=== PATIENT | female | born 1970 | race Caucasian/White ===

== ENCOUNTER 2016-11-01 23:24 | Observation (INO) | payer BC, OTHER ==
[2016-11-01] MEDS ORDERED: Sodium Chloride 0.9% 10 ML Syringe FLUSH PRN (23:36)
[2016-11-01] MEDS ORDERED: Aspirin 81 MG Tab.Chew PO ONE ×2 (23:36→23:42)
[2016-11-01] MEDS ORDERED: Sodium Chloride 0.9% 2.5 ML Syringe FLUSH PRN (23:36)
[2016-11-01] MEDS ORDERED: Ondansetron 4 MG/2 ML SDV IVPUSH ONE (23:37)
--- NOTE | 2016-11-01 23:41 | EDM.PDOC ---
ED HPI GENERAL MEDICAL PROBLEM - General Chief Complaint: Chest Pain Stated Complaint: CHEST PAIN Time Seen by Provider: 11/01/16 23:31 - History of Present Illness INITIAL COMMENTS - FREE TEXT/NARRATIVE: HISTORY AND PHYSICAL: History of present illness: The patient is a 46-year-old female with a history of hypertension and acid reflux and presents with a one-week history of left upper chest discomfort this been on and off but worsened tonight approximately 9:30 PM, 2 hours ago. The patient denies any recent trauma or upper respiratory symptoms and said that the pain has been coming and going and she thought it was more that her breast was hurting her because she is expecting her period. Tonight the discomfort seemed to be much stronger and was associated with nausea but no diaphoresis or shortness of breath. She has no abdominal pain and the pain does not radiate and she rates as a 5/10 in the ER and is pressure-like. She states that several days ago there was some left upper extremity numbness and tingling as well as discomfort which is currently not experiencing that; she said that she has some carpal tunnel issues and she thought those symptoms were related to that history.. Patient denies any leg pain or calf tenderness. Patient denies any social history and states that her mother had her first heart attack at 35 years of age and her father had a small heart attack at 65 years of age. The patient does have a history of having a cardiac angiogram done in [place] when she was 38 years of age, 8 years ago, and she did not have angioplasty she had "spasm". She says that initially she did a stress test and then was called back the next day to have an semielective angiogram due to the stress test findings. She denies any cardiac testing since that time. She follows with Dr. Oliver Cain at [facility]. The patient states she did take one baby aspirin earlier this evening. Review of systems: As per history of present illness and below otherwise all systems reviewed and negative. Past medical history: As per history of present illness and as reviewed below otherwise noncontributory. Surgical history: As per history of present illness and as reviewed below otherwise noncontributory. Social history: No reported history of drug or alcohol abuse. Family history: As per history of present illness and as reviewed below otherwise noncontributory. Physical exam: General: Well-developed overweight female who seems a little bit anxious in the ER but is nontoxic and speaking clearly and easily and benefits of been noted by me. HEENT: Atraumatic, normocephalic, pupils reactive, negative for conjunctival pallor or scleral icterus, mucous membranes moist, throat clear, neck supple, nontender, trachea midline. Lungs: Clear to auscultation, breath sounds equal bilaterally, chest nontender. No work or breathing or sensory muscle use Heart: S1S2, regular, negative for clicks, rubs, or JVD. Abdomen: Soft, nondistended, nontender. Negative for masses or hepatosplenomegaly. Negative for costovertebral tenderness. Pelvis: Stable nontender. Genitourinary: Deferred. Rectal: Deferred. Extremities: Atraumatic, negative for cords or calf pain. Neurovascular unremarkable. No pedal edema or leg asymmetry Neuro: Awake, alert, oriented. Cranial nerves II through XII unremarkable. Cerebellum unremarkable. Motor and sensory unremarkable throughout. Exam nonfocal. 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 Nitro paste will be placed. I will continue to followup testing results and disposition pending those results 0035: Patient remains pain-free and is aware of all testing results as is her father at bedside. I've advised for observation admission for further EKGs and labs and she is in agreement. I will discuss this case with our hospitalist Dr. Ibarra and plan for admission. Impression: Chest pain rule out ACS Definitive disposition and diagnosis as appropriate pending reevaluation and review of above. Left Chest Pain Score (Numeric/FACES): 5 - Related Data Allergies Allergy/AdvReac Type Severity Reaction Status Date / Time No Known Allergies Allergy Verified 11/01/16 23:46 Home Meds: Home Meds Aspirin [Halfprin] 81 mg PO BEDTIME 03/18/15 [History] Selenium 200 mcg PO DAILY 03/18/15 [History] amLODIPine [Norvasc] 5 mg PO DAILY 03/18/15 [History] Pantoprazole [ProTONIX IV] 40 mg PO BID 02/26/16 [History] Past Medical History HEENT History: Reports: None Cardiovascular History: Reports: Hypertension Other Cardiovascular History: pt states she "has heart spasms". 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 Coronary angiogram 6 years ago normal, placed on amlodipine with no problem since Respiratory History: Reports: None Gastrointestinal History: Reports: GERD Genitourinary History: Reports: None DISTILLER History: Reports: Musculoskeletal History: Reports: None Neurological History: Reports: None Psychiatric History: Reports: None Endocrine/Metabolic History: Reports: Obesity/BMI 30+ Hematologic History: Reports: None Immunologic History: Reports: None Oncologic (Cancer) History: Reports: None Dermatologic History: Reports: None - Past Surgical History Head Surgeries/Procedures: Reports: None GI Surgical History: Reports: Appendectomy, Cholecystectomy Female Surgical History: Reports: Tubal ligation Social & Family History - Tobacco Use Smoking Status *Q: Former Smoker - Recreational Drug Use Recreational Drug Use: No ED ROS GENERAL - Review of Systems Review Of Systems: ROS reveals no pertinent complaints other than HPI. ED EXAM, GENERAL - Physical Exam Exam: See Below (See dictation) Course - Vital Signs Last Recorded V/S: Last Vital Signs Temp 37.2 C 11/01/16 23:24 Pulse 85 11/01/16 23:57 Resp 16 11/01/16 23:57 BP 111/72 11/01/16 23:57 Pulse Ox 96 11/01/16 23:57 - Orders/Labs/Meds Orders: Active Orders 24 hr Category Date Time Status Cardiac Monitoring [RC] . DIRECTED Care 11/01/16 23:36 Active EKG Documentation Completion [RC] STAT Care 11/01/16 23:36 Active Oxygen Therapy, ED [RC] ASDIRECTED Care 11/01/16 23:36 Active Pulse Oximetry [RC] ASDIRECTED Care 11/01/16 23:36 Active Chest 1V Frontal [CR] Stat Exams 11/01/16 23:36 Taken Sodium Chloride 0.9% [Saline Flush] Med 11/01/16 23:36 Active 10 ml FLUSH ASDIRECTED PRN Sodium Chloride 0.9% [Saline Flush] Med 11/01/16 23:36 Active 2.5 ml FLUSH ASDIRECTED PRN Saline Lock Insert [OM.PC] Stat Oth 11/01/16 23:36 Ordered Medication Orders Sodium Chloride (Saline Flush) 10 ml FLUSH ASDIRECTED PRN PRN Reason: Keep Vein Open Last Admin: 11/01/16 23:50 Dose: 10 ml Sodium Chloride (Saline Flush) 2.5 ml FLUSH ASDIRECTED PRN PRN Reason: Keep Vein Open Last Admin: 11/01/16 23:46 Dose: 2.5 ml Labs: Laboratory Tests 11/01/16 11/01/16 11/01/16 Range/Units 23:40 23:40 23:40 WBC 6.85 (4.0-11.0) K/uL RBC 4.25 L (4.30-5.90) M/uL Hgb 12.7 (12.0-16.0) g/dL Hct 38.2 (36.0-46.0) % MCV 89.9 (80.0-98.0) fL MCH 29.9 (27.0-32.0) pg MCHC 33.2 (31.0-37.0) g/dL RDW Std Deviation 46.1 (28.0-62.0) fl RDW Coeff of Joseph 14 (11.0-15.0) % Plt Count 241 (150-400) K/uL MPV 10.10 (7.40-12.00) fL Neut % (Auto) 55.6 (48.0-80.0) % Lymph % (Auto) 36.2 (16.0-40.0) % [place] % (Auto) 5.3 (0.0-15.0) % Eos % (Auto) 2.6 (0.0-7.0) % Baso % (Auto) 0.3 (0.0-1.5) % Neut # (Auto) 3.8 (1.4-5.7) K/uL Lymph # (Auto) 2.5 H (0.6-2.4) K/uL [place] # (Auto) 0.4 (0.0-0.8) K/uL Eos # (Auto) 0.2 (0.0-0.7) K/uL Baso # (Auto) 0.0 (0.0-0.1) K/uL Nucleated RBC % 0.0 /100WBC Nucleated RBCs # 0 K/uL INR 0.92 (0.86-1.11) Sodium 138 (136-146) mmol/L Potassium 3.6 (3.5-5.1) mmol/L Chloride 108 (98-110) mmol/L Carbon Dioxide 20 L (21-31) mmol/L BUN 19 (6.0-23.0) mg/dL Creatinine 0.9 (0.6-1.5) mg/dL Est Cr Clr Drug Dosing 75.08 mL/min Estimated GFR (MDRD) > 60.0 ml/min Glucose 110 (60-110) mg/dL Calcium 8.6 L (8.8-10.8) mg/dL Total Bilirubin 0.5 (0.1-1.5) mg/dL AST 23 (5-40) IU/L ALT 28 (8-54) IU/L Alkaline Phosphatase 54 (40-150) Troponin I (0.0-0.29) NG/ML Total Protein 7.1 (6.0-8.0) g/dL Albumin 3.9 (3.5-5.0) g/dL Globulin 3.2 (2.0-3.5) g/dL Albumin/Globulin Ratio 1.2 L (1.3-2.8) 11/01/16 Range/Units 23:40 WBC (4.0-11.0) K/uL RBC (4.30-5.90) M/uL Hgb (12.0-16.0) g/dL Hct (36.0-46.0) % MCV (80.0-98.0) fL MCH (27.0-32.0) pg MCHC (31.0-37.0) g/dL RDW Std Deviation (28.0-62.0) fl RDW Coeff of Joseph (11.0-15.0) % Plt Count (150-400) K/uL MPV (7.40-12.00) fL Neut % (Auto) (48.0-80.0) % Lymph % (Auto) (16.0-40.0) % [place] % (Auto) (0.0-15.0) % Eos % (Auto) (0.0-7.0) % Baso % (Auto) (0.0-1.5) % Neut # (Auto) (1.4-5.7) K/uL Lymph # (Auto) (0.6-2.4) K/uL [place] # (Auto) (0.0-0.8) K/uL Eos # (Auto) (0.0-0.7) K/uL Baso # (Auto) (0.0-0.1) K/uL Nucleated RBC % /100WBC Nucleated RBCs # K/uL INR (0.86-1.11) Sodium (136-146) mmol/L Potassium (3.5-5.1) mmol/L Chloride (98-110) mmol/L Carbon Dioxide (21-31) mmol/L BUN (6.0-23.0) mg/dL Creatinine (0.6-1.5) mg/dL Est Cr Clr Drug Dosing mL/min Estimated GFR (MDRD) ml/min Glucose (60-110) mg/dL Calcium (8.8-10.8) mg/dL Total Bilirubin (0.1-1.5) mg/dL AST (5-40) IU/L ALT (8-54) IU/L Alkaline Phosphatase (40-150) Troponin I < 0.10 (0.0-0.29) NG/ML Total Protein (6.0-8.0) g/dL Albumin (3.5-5.0) g/dL Globulin (2.0-3.5) g/dL Albumin/Globulin Ratio (1.3-2.8) Meds: Medications Generic Name Dose Route Start Last Admin Trade Name Freq PRN Reason Stop Dose Admin Sodium Chloride 10 ml 11/01/16 23:36 11/01/16 23:50 Saline Flush FLUSH 10 ml ASDIRECTED PRN Administration Keep Vein Open Sodium Chloride 2.5 ml 11/01/16 23:36 11/01/16 23:46 Saline Flush FLUSH 2.5 ml ASDIRECTED PRN Administration Keep Vein Open Discontinued Medications Generic Name Dose Route Start Last Admin Trade Name Freq PRN Reason Stop Dose Admin Aspirin 324 mg 11/01/16 23:36 11/01/16 23:54 Aspirin PO 11/01/16 23:37 Not Given ONETIME ONE Aspirin 243 mg 11/01/16 23:42 11/01/16 23:43 Aspirin PO 11/01/16 23:43 243 mg ONETIME ONE Administration Nitroglycerin 0.4 mg 11/01/16 23:45 11/01/16 23:50 Nitrostat SL 11/01/16 23:56 0.4 mg Q5M TATIANA Administration Nitroglycerin 0.5 gm 11/01/16 23:55 11/02/16 00:02 Nitro-Bid 2% TOP 11/01/16 23:56 0.5 gm ONETIME ONE Administration Ondansetron HCl 4 mg 11/01/16 23:37 11/01/16 23:44 Zofran IVPUSH 11/01/16 23:38 4 mg ONETIME ONE Administration Departure - Departure Time of Disposition: 00:36 Disposition: Refer to Observation Condition: good Clinical Impression: Acute coronary syndrome Forms: ED Department Discharge - My Orders Last 24 Hours: My Active Orders 11/01/16 23:36 Cardiac Monitoring [RC] . DIRECTED EKG Documentation Completion [RC] STAT Oxygen Therapy, ED [RC] ASDIRECTED Pulse Oximetry [RC] ASDIRECTED Chest 1V Frontal [CR] Stat Sodium Chloride 0.9% [Saline Flush] 10 ml FLUSH ASDIRECTED PRN Sodium Chloride 0.9% [Saline Flush] 2.5 ml FLUSH ASDIRECTED PRN Saline Lock Insert [OM.PC] Stat - Assessment/Plan Last 24 Hours: My Active Orders 11/01/16 23:36 Cardiac Monitoring [RC] . DIRECTED EKG Documentation Completion [RC] STAT Oxygen Therapy, ED [RC] ASDIRECTED Pulse Oximetry [RC] ASDIRECTED Chest 1V Frontal [CR] Stat Sodium Chloride 0.9% [Saline Flush] 10 ml FLUSH ASDIRECTED PRN Sodium Chloride 0.9% [Saline Flush] 2.5 ml FLUSH ASDIRECTED PRN Saline Lock Insert [OM.PC] Stat
[2016-11-01] MEDS: Nitroglycerin 0.4 MG Tab.SL SL SCH ×2 (23:44→23:50)
[2016-11-01] MEDS ORDERED: Nitroglycerin 2% Oint 1 GM UD Packet TOP ONE (23:55)
[2016-11-02 00:27] LABS: CHLORIDE,CL 108 mmol/L (98-110); SODIUM,NA 138 mmol/L (136-146)
[2016-11-02] MEDS ORDERED: Morphine 2 MG/ML Syringe IVPUSH PRN (01:39)
--- NOTE | 2016-11-02 08:10 | PCM.HP ---
H&P History of Present Illness - General Date of Service: 11/02/16 Admit Problem/Dx: Chest pain Source of Information: Patient History Limitations: Reports: No limitations - History of Present Illness Initial Comments - Free Text/Narative: This 46 year old female with pmh of HTN, GERD and coronary artery spasm presented to the ED with one week history of left upper chest discomfort. It has been on and off but worsened las night around 9:30pm. She reports the pain as sharp and burning pressure to her left upper chest and radiated to her L shoulder. She thought it was her L breast the last few days, but then it progressed. She also had some L hand numbness and tingling which included her forearm as well, she though this maybe related to her carpal tunnel in that arm. She had some nausea, but no diaphoresis or SOB. Denies abdominal pain or urinary symptoms. She did have some dark brown diarrhea. No black or bloody bms. She had a similar even as this 8 years ago. A stress test was completed in which they called her back for an angiogram, which was negative and they called her chest pain a "spasm". She was placed on Norvasc and has been on that since. She has not followed with Cardiology since, but does follow with PCP Dr Forrester. Her mother had her first MA at age 35 and father at 65 years old. Mother at bedside and reports she has similar coronary spasms "but much worse". In the ED, CBC WNL and BMP WNL. Troponin negative. EKG revealed SR [address] segment changes. Nitro x2 was given and relieved pain. Nitro paste was placed. She also was given Protonix as well. She was admitted with chest pain rule out ACS. Left Chest Pain Score (Numeric/FACES): 4 - Related Data Allergies/Adverse Reactions: Allergies Allergy/AdvReac Type Severity Reaction Status Date / Time No Known Allergies Allergy Verified 11/01/16 23:46 Home Medications: Home Meds Aspirin [Halfprin] 81 mg PO BEDTIME 03/18/15 [History] Selenium 200 mcg PO DAILY 03/18/15 [History] amLODIPine [Norvasc] 5 mg PO DAILY 03/18/15 [History] Pantoprazole Sodium [Protonix] 40 mg PO BID 11/02/16 [History] Past Medical History HEENT History: Reports: None Cardiovascular History: Reports: Hypertension Other Cardiovascular History: pt states she "has heart spasms". 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 Coronary angiogram 8 years ago normal, placed on amlodipine with no problem since Respiratory History: Reports: None. Denies: COPD, PE, SOB Gastrointestinal History: Reports: GERD. Denies: GI bleed Genitourinary History: Reports: None. 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 Denies: Diabetes, type II, Hypothyroidism Hematologic History: Reports: None Immunologic History: Reports: None Oncologic (Cancer) History: Reports: None Dermatologic History: Reports: None - Past Surgical History Head Surgeries/Procedures: Reports: None GI Surgical History: Reports: Appendectomy, Cholecystectomy Female Surgical History: Reports: Tubal ligation Social & Family History - Family History Cardiac: Reports: Hypertension, MA, Other (see below) Other Cardiac Family History: "Heart muscle spasm disorder" GI: Reports: Diverticulosis : Reports: Other (see below) Other Family History: Kidney cancer Neurological: Reports: MS - Tobacco Use Smoking Status *Q: Former Smoker Years of Tobacco use: 18 Second Hand Smoke Exposure: No - Caffeine Use Caffeine Use: Reports: Coffee - Alcohol Use Alcohol Use History: No - Recreational Drug Use Recreational Drug Use: No Recreational Drug Type: Denies: Cocaine H&P Review of Systems - Review of Systems: Review Of Systems: See Below General: Reports: no symptoms. Denies: fever, chills, malaise HEENT: Reports: headaches (wants nitro paste off). Denies: contact lenses, visual changes Pulmonary: Reports: No Symptoms. Denies: Shortness of Breath, Cough, Sputum Cardiovascular: Denies: chest pain (no longer there, has burning from nitro paste on skin), palpitations, edema Gastrointestinal: Reports: No symptoms. Denies: Abdominal pain, Black stool, Bloody stool, Nausea, Vomiting Genitourinary: Reports: no symptoms. Denies: dysuria, frequency, burning Musculoskeletal: Reports: no symptoms Skin: Reports: no symptoms Psychiatric: Reports: no symptoms Neurological: Reports: No Symptoms, Numbness (little numbness to L hand, but at baseline). Denies: Paresthesia Hematologic/Lymphatic: Reports: no symptoms Immunologic: Reports: no symptoms Exam - Exam Exam: See Below - Vital Signs Vital Signs: Last Vital Signs Temp 98 F 11/02/16 07:57 Pulse 73 11/02/16 07:57 Resp 12 11/02/16 07:57 BP 113/61 11/02/16 07:57 Pulse Ox 95 11/02/16 07:57 Weight: 113.1 kg - Exam General: alert, oriented, cooperative HEENT: Conjunctiva clear, EACs clear, EOMI, Hearing intact, Mucosa moist & pink , Nares patent, Posterior pharynx clear Neck: supple, trachea midline, 2+ carotid pulse wo bruit Lungs: Clear to auscultation, Normal respiratory effort Cardiovascular: regular rate, regular rhythm, normal S1, normal S2, other (some tenderness to palpation of chest and L shoulder) Abdomen: normal bowel sounds, soft. No: organomegaly, tenderness Extremities: normal inspection, normal pulses Neurological: cranial nerves intact, reflexes equal bilateral Neuro Extensive - Mental Status: alert, oriented x3, normal mood/affect, normal cognition Psychiatric: alert, normal affect, normal mood - Patient Data Lab Results last 24 hrs: Laboratory Results - last 24 hr 11/02/16 Range/Units 05:16 Troponin I < 0.10 (0.0-0.29) NG/ML Result Diagrams: 11/01/16 23:40 11/01/16 23:40 EKG INTERPRETATION EKG Date: 11/02/16 Rhythm: NSR Rate (beats/min): 86 P-wave: present QRS: normal ST-T: normal QT: normal Comparison: NA - no prior EKG *Q Meaningful Use (ADM) - VTE *Q VTE Criteria *Q: - VTE Risk Assess *Q Each Risk Factor Represents 1 Point: Age 41 - 59 years Total Score 1 Point Risk Factors: 1 Each Risk Factor Represents 2 Points: Morbid Obesity (BMI Greater than 40) Total Score 2 Point Risk Factors: 2 Each Risk Factor Represents 3 Points: None Total Score 3 Point Risk Factors: 0 Each Risk Factor Represents 5 Points: None Total Score 5 Point Risk Factors: 0 Venous Thromboembolism Risk Factor Score *Q: 3 - Stroke *Q Stroke Criteria *Q: - AMI *Q AMI Criteria *Q: - Problem List (1) Chest pain SNOMED Code(s): 96382161 ICD Code: R07.9 - CHEST PAIN, UNSPECIFIED Status: Acute Current Visit: Yes Qualifiers: Chest pain type: other chest pain Qualified Code(s): R07.89 - Other chest pain; R07.8 - Other chest pain (2) Obesity, morbid, BMI 40.0-49.9 SNOMED Code(s): 644240655, 916412889 ICD Code: E66.01 - MORBID (SEVERE) OBESITY DUE TO EXCESS CALORIES Status: Chronic Current Visit: Yes (3) HTN (hypertension) SNOMED Code(s): 70899217 ICD Code: I10 - ESSENTIAL (PRIMARY) HYPERTENSION Status: Chronic Current Visit: Yes Qualifiers: Hypertension type: essential hypertension Qualified Code(s): I10 - Essential (primary) hypertension (4) Coronary artery spasm SNOMED Code(s): 84704530 ICD Code: I20.1 - ANGINA PECTORIS WITH DOCUMENTED SPASM Status: Chronic Current Visit: Yes Problem List Initiated/Reviewed/Updated: Yes Orders Last 24hrs: Active Orders 24 hr Category Date Time Status Telemetry Monitoring [Cardiac Monitoring] [RC] . Care 11/02/16 01:41 Active DIRECTED Heart Healthy Diet [DIET] Diet 11/02/16 Breakfast Active LIPID PANEL [CHEM] Routine Lab 11/02/16 08:07 Ordered MAGNESIUM [CHEM] Routine Lab 11/02/16 08:09 Ordered TROPONIN I [CHEM] Q6H Lab 11/02/16 11:30 Ordered Morphine Med 11/02/16 01:39 Active 2 mg IVPUSH Q3H PRN Medication Orders Morphine Sulfate (Morphine) 2 mg IVPUSH Q3H PRN PRN Reason: Chest Pain Sodium Chloride (Saline Flush) 10 ml FLUSH ASDIRECTED PRN PRN Reason: Keep Vein Open Last Admin: 11/01/16 23:50 Dose: 10 ml Sodium Chloride (Saline Flush) 2.5 ml FLUSH ASDIRECTED PRN PRN Reason: Keep Vein Open Last Admin: 11/01/16 23:46 Dose: 2.5 ml Assessment/Plan Comment:: This 46 year old female admitted with chest pain R/O ACS 1. Chest pain: Trend troponins, x2 negative. Tele SR. Will remove nitro paste. Spoke with Dr. Gibbs over the phone, unavailable to see patient today. He recommends if she rules out, discharge home, follow up with him and arrange for stress test. He also would recommend stopping Norvasc and changing to Diltiazem XL 120 mg for coronary spasms and HTN VTE; SCDs DISCHARGE PLAN: All troponins negative and she is pain free at this time. ACS ruled out, maybe a component of coronary spasm vs GERD. Nitro paste was removed this am and headache is gone with the help of Tylenol. I discussed with the patient regarding Dr. Gibbs's recommendations and she is agreeable with seeing him in the clinic and doing a stress test. She would like to stay on Norvasc and talk with Dr. Chopra regarding changing at her appointment. I will discharge her home today with no new medications and to arrange follow up with PCP and Dr Gibbs. She is eager for discharge.
[2016-11-02] MEDS: Nitroglycerin 0.4 MG Tab.SL SL SCH (09:18)
[2016-11-02] MEDS ORDERED: Acetaminophen 325 MG Tab PO PRN (09:24)
[2016-11-02 11:43] VITALS: BP 119/72
--- NOTE | 2016-11-02 14:29 | CR ---
EXAM DATE: 11/02/16 PATIENT'S AGE: 46 Patient: MACY HEATON Facility: [place], [place] Site . Site : [id number] Study: XRay Chest [id number]/11/2017 12:13:09 AM Ordering Physician: Doctor Mendoza Final Report: INDICATIONS: Chest pain. Shortness of breath. TECHNIQUE: Chest 1 view. COMPARISON: 10/30/2012. FINDINGS: No pneumothorax, pleural effusion or airspace consolidation. Cardiac and mediastinal contours are within normal limits. No pulmonary edema. Upper abdomen and osseous structures show no acute abnormality. IMPRESSION: No acute cardiopulmonary disease. Dictated by Kenn Rudolph MD @ 11/02/2016 12:18:46 AM Dictated by: Kenn Rudolph MD @ 11/02/2016 00:18:58 (Electronic Signature) Report Signed by Proxy and Original Signed Document filed in the Medical Record. MTDNav
== END 2016-11-02 12:55 | disposition home or self-care (01) ==
LOC: MW.ED 23:24 → MW.MS 11-02 00:38
PROVIDERS: ADMIT Internal Medicine; ATTEND Internal Medicine
DX: I20.1 Angina pectoris with documented spasm (principal); I10 Essential (primary) hypertension; K21.9 Gastro-esophageal reflux disease without esophagitis; Z82.49 Family history of ischemic heart disease and other diseases of the circulatory system; E66.01 Morbid (severe) obesity due to excess calories; Z68.41 Body mass index [BMI] 40.0-44.9, adult; Z79.82 Long term (current) use of aspirin; Z79.899 Other long term (current) drug therapy; Z87.891 Personal history of nicotine dependence; Z90.49 Acquired absence of other specified parts of digestive tract; Z98.51 Tubal ligation status; Z80.51 Family history of malignant neoplasm of kidney; Z83.79 Family history of other diseases of the digestive system; Z82.0 Family history of epilepsy and other diseases of the nervous system
CPT/HCPCS: 36415; 71010; 80053; 80061; 83735; 84484; 85025; 85610; 93005; 96374; 99285; A9270; G0378; J2405

== ENCOUNTER → 2016-11-12 | Outpatient (CLI) | payer BC ==
--- NOTE | 2016-11-12 08:15 | PCM.PRNOTE ---
- Free Text/Narrative Note: Exercise MIBI Indication CP Sestamibi Tc99 25 MCi was given at the peak HR Patient was brought to the stress test lab in postabsorptive state verbal and paper consent was obtained from patient Vital signs at resting state blood pressure of 112/74 with a heart rate of 85 EKG shows sinus rhythm no ST changes no Q waves Maximal heart rate of 154 and target heart rate is 150 Patient reached the target heart rate, completed stage III Brigido protocol Peak blood pressure is 148/82 Total exercise time of 8.[address] changes with a peak heart rate no arrhythmia METS 10.1 Patient expressed symptoms of slight SOB, denied chest pain. Impression Normal hemodynamics, normal chronotropic, fair exercise capacity, negative for ischemia on EKG Plan Nuclear portion pending
--- NOTE | 2016-11-12 13:28 | NM ---
EXAMINATION: Nuclear medicine myocardial perfusion study with exercise stress test. HISTORY: Chest pain. PROCEDURE: Patient exercised according to Brigido protocol for 8 minutes and 57 seconds and achieved maximal hear t rate of 154 beats per minute. Adequate exercise. Following intravenous administration of 24.9 mCi of technetium 99m sestamibi, stress SPECT images including gating imaging was performed. FINDINGS: Stress myocardial SPECT images demonstrates mildly decreased perfusion along the anterior wall with a small area of moderately decreased portion within the mid anterior wall. There is also mildly decr eased uptake at the apex. There is likely a degree of breast attenuation artifact. Review of gated images demonstrates normal wall motion, contractility and wall thickening. The left ventricular ejection fraction is 68 %. The left ventricular chamber size is normal. IMPRESSION: 1. Decreased perfusion along the anterior wall, correlate with rest imaging. 2. Normal ventricular chamber size and function with ejection fraction of 60 %.
== END ==
LOC: MW.NM 06:45
PROVIDERS: ATTEND Nurse Practitioner Family
DX: I20.1 Angina pectoris with documented spasm (principal)
CPT/HCPCS: 78451; 93017; A9500

== ENCOUNTER → 2016-11-17 | Outpatient (CLI) | payer BC ==
--- NOTE | 2016-11-23 17:03 | ECHO ---
The echocardiogram report can be seen in this patient's EMR in the Reports section MTDD
== END ==
LOC: MW.US 09:53
PROVIDERS: ATTEND Internal Medicine
DX: R07.9 Chest pain, unspecified (principal)
CPT/HCPCS: 93306

== ENCOUNTER 2018-07-31 10:57 | Emergency (ER) | payer BC ==
[2018-07-31] MEDS ORDERED: Sodium Chloride 0.9% 10 ML Syringe FLUSH PRN (11:01)
[2018-07-31] MEDS ORDERED: Sodium Chloride 0.9% 2.5 ML Syringe FLUSH PRN (11:01)
[2018-07-31] MEDS ORDERED: Nitroglycerin 0.4 MG Tab.SL SL PRN (11:33)
[2018-07-31] MEDS ORDERED: Aspirin 81 MG Tab.Chew PO ONE (11:33)
--- NOTE | 2018-07-31 11:37 | EDM.PDOC ---
ED HPI GENERAL MEDICAL PROBLEM - General Chief Complaint: Chest Pain Stated Complaint: CHEST PAIN Time Seen by Provider: 07/31/18 11:00 Source of Information: Reports: Patient History Limitations: Reports: No Limitations - History of Present Illness INITIAL COMMENTS - FREE TEXT/NARRATIVE: History of present illness: []Patient has a history of Prinzmetal's angina and has had an OK in the past. She comes to the ER today with 1 week's worth of chest pain radiating to her left arm. She initially thought it was her carpal tunnel radiating up to her arm and she also started her menses so she thought her chest pain was actually breast pain. This morning she woke up and stated that pain has not gone away and wanted to be checked. Called her doctor who is unable to see her. Review of systems: As per history of present illness and below otherwise all systems reviewed and negative. Past medical history: As per history of present illness and as reviewed below otherwise noncontributory. Surgical history: As per history of present illness and as reviewed below otherwise noncontributory. Social history: No reported history of drug or alcohol abuse. Family history: As per history of present illness and as reviewed below otherwise noncontributory. Physical exam: General: Well developed, well nourished in NAD HEENT: Atraumatic, normocephalic, pupils reactive, negative for conjunctival pallor or scleral icterus, mucous membranes moist, throat clear, neck supple, nontender, trachea midline. Lungs: Clear to auscultation, breath sounds equal bilaterally, chest nontender. Heart: S1S2, regular, negative for clicks, rubs, or JVD. Abdomen: NABS, Soft, nondistended, nontender. Negative for masses or hepatosplenomegaly. Negative for costovertebral tenderness. Pelvis: Stable nontender. Genitourinary: Deferred. Rectal: Deferred. Extremities: Atraumatic, negative for cords or calf pain. Neurovascular unremarkable. Neuro: Awake, alert, oriented. Cranial nerves II through XII unremarkable. Cerebellum unremarkable. Motor and sensory unremarkable throughout. Exam nonfocal. Skin:warm and dry Diagnostics: EKG, CBC, chemistry, troponin, chest x-ray Therapeutics: Aspirin, nitroglycerin ordered, however patient's pain subsided and it was held ED Course: Unremarkable Impression: Chest pain greater than 24 hours with negative troponin Prescriptions: None Plan: Follow-up with cardiology, take meds as directed return if symptoms worsen or change. Definitive disposition and diagnosis as appropriate pending reevaluation and review of above. Chest Pain Score (Numeric/FACES): 4 - Related Data Allergies Allergy/AdvReac Type Severity Reaction Status Date / Time No Known Allergies Allergy Verified 11/01/16 23:46 Home Meds: Home Meds Aspirin [Halfprin] 81 mg PO BEDTIME 03/18/15 [History] Selenium 200 mcg PO DAILY 03/18/15 [History] amLODIPine [Norvasc] 5 mg PO DAILY 03/18/15 [History] Pantoprazole Sodium [Protonix] 40 mg PO BID 11/02/16 [History] Past Medical History HEENT History: Reports: None Cardiovascular History: Reports: Hypertension Other Cardiovascular History: pt states she "has heart spasms". 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 Coronary angiogram 8 years ago normal, placed on amlodipine with no problem since Respiratory History: Reports: None. Denies: COPD, PE, SOB Gastrointestinal History: Reports: GERD. Denies: GI Bleed Genitourinary History: Reports: None. 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 Denies: Diabetes, Type II, Hypothyroidism Hematologic History: Reports: None Immunologic History: Reports: None Oncologic (Cancer) History: Reports: None Dermatologic History: Reports: None - Past Surgical History Female Surgical History: Reports: Tubal Ligation Social & Family History - Family History Cardiac: Reports: Hypertension, [place], Other (See Below) Other Cardiac Family History: "Heart muscle spasm disorder" GI: Reports: Diverticulosis : Reports: Other (See Below) Other Family History: Kidney cancer Neurological: Reports: MS - Caffeine Use Caffeine Use: Reports: Coffee ED ROS GENERAL - Review of Systems Review Of Systems: ROS reveals no pertinent complaints other than HPI. ED EXAM, GENERAL - Physical Exam Exam: See Below (See history of present illness) Course - Vital Signs Last Recorded V/S: Last Vital Signs Temp 97.9 F 07/31/18 12:42 Pulse 73 07/31/18 12:42 Resp 18 07/31/18 12:42 BP 108/75 07/31/18 12:42 Pulse Ox 99 07/31/18 12:42 - Orders/Labs/Meds Orders: Active Orders 24 hr Category Date Time Status EKG Documentation Completion [RC] STAT Care 07/31/18 11:01 Active Saline Lock Insert [OM.PC] Stat Oth 07/31/18 11:01 Ordered Labs: Laboratory Tests 07/31/18 07/31/18 Range/Units 11:11 11:11 WBC 6.61 (4.0-11.0) K/uL RBC 4.54 (4.30-5.90) M/uL Hgb 13.3 (12.0-16.0) g/dL Hct 39.5 (36.0-46.0) % MCV 87.0 (80.0-98.0) fL MCH 29.3 (27.0-32.0) pg MCHC 33.7 (31.0-37.0) g/dL RDW Std Deviation 45.6 (28.0-62.0) fl RDW Coeff of Joseph 15 (11.0-15.0) % Plt Count 233 (150-400) K/uL MPV 10.00 (7.40-12.00) fL Neut % (Auto) 59.7 (48.0-80.0) % Lymph % (Auto) 31.2 (16.0-40.0) % [place] % (Auto) 6.8 (0.0-15.0) % Eos % (Auto) 1.8 (0.0-7.0) % Baso % (Auto) 0.5 (0.0-1.5) % Neut # (Auto) 4.0 (1.4-5.7) K/uL Lymph # (Auto) 2.1 (0.6-2.4) K/uL [place] # (Auto) 0.5 (0.0-0.8) K/uL Eos # (Auto) 0.1 (0.0-0.7) K/uL Baso # (Auto) 0.0 (0.0-0.1) K/uL Nucleated RBC % 0.0 /100WBC Nucleated RBCs # 0 K/uL Sodium 137 (136-145) mmol/L Potassium 3.9 (3.5-5.1) mmol/L Chloride 104 (98-107) mmol/L Carbon Dioxide 21.4 (21.0-32.0) mmol/L BUN 16 (7.0-18.0) mg/dL Creatinine 0.9 (0.6-1.0) mg/dL Est Cr Clr Drug Dosing 73.12 mL/min Estimated GFR (MDRD) > 60.0 ml/min Glucose 104 (74-106) mg/dL Calcium 9.1 (8.5-10.1) mg/dL Total Bilirubin 0.2 (0.2-1.0) mg/dL AST 24 (15-37) IU/L ALT 46 (14-63) IU/L Alkaline Phosphatase 72 (46-116) U/L Troponin I < 0.050 (0.000-0.056) ng/mL Total Protein 7.9 (6.4-8.2) g/dL Albumin 3.5 (3.4-5.0) g/dL Globulin 4.4 H (2.6-4.0) g/dL Albumin/Globulin Ratio 0.8 L (0.9-1.6) Meds: Medications Discontinued Medications Generic Name Dose Route Start Last Admin Trade Name Freq PRN Reason Stop Dose Admin Aspirin 324 mg 07/31/18 11:33 07/31/18 11:40 Aspirin PO 07/31/18 11:34 324 mg ONETIME ONE Administration Nitroglycerin 0.4 mg 07/31/18 11:33 Nitrostat SL Q5M PRN Chest Pain Sodium Chloride 10 ml 07/31/18 11:01 Saline Flush FLUSH ASDIRECTED PRN Keep Vein Open Sodium Chloride 2.5 ml 07/31/18 11:01 Saline Flush FLUSH ASDIRECTED PRN Keep Vein Open Departure - Departure Time of Disposition: 12:35 Disposition: Home, Self-Care 01 Condition: Good Clinical Impression: Chest pain Qualifiers: Chest pain type: other chest pain Qualified Code(s): R07.89 - Other chest pain Instructions: Nonspecific Chest Pain, [id number] Referrals: Oliver Forrester MD [Primary Care Provider] - Forms: ED Department Discharge Additional Instructions: The following information is given to patients seen in the emergency department who are being discharged to home. This information is to outline your options for follow-up care. We provide all patients seen in our emergency department with a follow-up referral. The need for follow-up, as well as the timing and circumstances, are variable depending upon the specifics of your emergency department visit. If you don't have a primary care physician on staff, we will provide you with a referral. We always advise you to contact your personal physician following an emergency department visit to inform them of the circumstance of the visit and for follow-up with them and/or the need for any referrals to a consulting specialist. The emergency department will also refer you to a specialist when appropriate. This referral assures that you have the opportunity for follow-up care with a specialist. All of these measure are taken in an effort to provide you with optimal care, which includes your follow-up. Under all circumstances we always encourage you to contact your private physician who remains a resource for coordinating your care. When calling for follow-up care, please make the office aware that this follow-up is from your recent emergency room visit. If for any reason you are refused follow-up, please contact the [facility] Emergency Department at and asked to speak to the emergency department charge nurse. [facility] Primary [facility] [address] [place] [address] - My Orders Last 24 Hours: My Active Orders 07/31/18 11:01 EKG Documentation Completion [RC] STAT Saline Lock Insert [OM.PC] Stat - Assessment/Plan Last 24 Hours: My Active Orders 07/31/18 11:01 EKG Documentation Completion [RC] STAT Saline Lock Insert [OM.PC] Stat
[2018-07-31 11:43] LABS: SODIUM,NA 137 mmol/L (136-145)
[2018-07-31 12:33] LABS: CHLORIDE,CL 104 mmol/L (98-107)
[2018-07-31 12:43] VITALS: BP 108/75
--- NOTE | 2018-07-31 12:54 | CR ---
EXAMINATION: Portable chest radiograph. HISTORY: Shortness of breath. FINDINGS: The trachea is midline. The cardiomediastinal silhouette is within normal limits. No pulmonary infiltrates, effusions or pneumothorax. Osseous structures appear unremarkable. IMPRESSION: No acute cardiopulmonary process.
== END 2018-07-31 12:45 | disposition home or self-care (01) ==
LOC: MW.ED 10:57
DX: R07.89 Other chest pain (principal); I10 Essential (primary) hypertension; K21.9 Gastro-esophageal reflux disease without esophagitis; Z79.82 Long term (current) use of aspirin; Z79.899 Other long term (current) drug therapy
CPT/HCPCS: 36415; 71045; 80053; 84484; 85025; 93005; 99285; A9270

== ENCOUNTER 2021-03-25 19:52 | Emergency (ER) | payer BC ==
[2021-03-25] MEDS ORDERED: Sodium Chloride 0.9% 2.5 ML Syringe FLUSH PRN (21:18)
[2021-03-25] MEDS ORDERED: Sodium Chloride 0.9% 10 ML Syringe FLUSH PRN (21:18)
--- NOTE | 2021-03-25 21:32 | EDM.PDOC ---
ED HPI GENERAL MEDICAL PROBLEM - General Chief Complaint: Respiratory Problem Stated Complaint: DIFFICULTY BREATHING, COUGH Time Seen by Provider: 03/25/21 21:05 - History of Present Illness INITIAL COMMENTS - FREE TEXT/NARRATIVE: 51-year-old female non-smoker history of coronary artery spasm presenting with 1 week of malaise productive cough and shortness of breath. was recently positive for COVID-19 but is since completed his quarantine. Some chills but no fever myalgias malaise as well. No abdominal pain no vomiting no diarrhea. No prior history of lung disease. - Related Data Allergies Allergy/AdvReac Type Severity Reaction Status Date / Time No Known Allergies Allergy Verified 03/25/21 21:48 Home Meds: Home Meds Aspirin [Halfprin] 81 mg PO BEDTIME 03/18/15 [History] amLODIPine [Norvasc] 5 mg PO DAILY 03/18/15 [History] Past Medical History HEENT History: Reports: None Cardiovascular History: Reports: Hypertension Other Cardiovascular History: pt states she "has heart spasms". 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 Coronary angiogram 8 years ago normal, placed on amlodipine with no problem since Respiratory History: Reports: None. Denies: COPD, PE, SOB Gastrointestinal History: Reports: GERD. Denies: GI Bleed Genitourinary History: Reports: None. 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 Denies: Diabetes, Type II, Hypothyroidism Hematologic History: Reports: None Immunologic History: Reports: None Oncologic (Cancer) History: Reports: None Dermatologic History: Reports: None - Infectious Disease History Infectious Disease History: Reports: Chicken Pox - Past Surgical History Female Surgical History: Reports: Tubal Ligation Social & Family History - Family History Family Medical History: No Pertinent Family History Cardiac: Reports: Hypertension, [place], Other (See Below) Other Cardiac Family History: "Heart muscle spasm disorder" GI: Reports: Diverticulosis : Reports: Other (See Below) Other Family History: Kidney cancer Neurological: Reports: MS - Caffeine Use Caffeine Use: Reports: Coffee ED ROS GENERAL - Review of Systems Review Of Systems: See Below Free Text/Narrative/Comment: General: Per HPI Skin: No rash. Eyes: No vision problems. ENT: No sore throat. Neck: No neck stiffness. Respiratory: Per HPI Cardiac: No chest pain. Gastrointestinal: No nausea, vomiting or abdominal pain. Urinary: No dysuria. Musculoskeletal: No myalgias/arthralgias. Neurologic: No headache. ED EXAM, GENERAL - Physical Exam Exam: See Below Free Text/Narrative:: General Appearance: No acute distress, appears comfortable Skin: No rash HEENT: Normocephalic/atraumatic, sclera anicteric, mucous membranes moist Neck: Normal range of motion Chest and Lungs: Bilateral breath sounds, clear to auscultation Cardiovascular: Regular rate and rhythm, no murmur Abdomen: Soft, non-tender Back: Normal Musculoskeletal: No edema or tenderness Neurologic: Awake, alert, no obvious deficits, moving all extremities Psychiatric: Appropriate, cooperative #1 Interpretation EKG Date: 03/25/21 Time: 21:51 EKG Interpretation Comments: Normal sinus rhythm rate of 87 borderline low voltage precordial lead consistent with body habitus no acute ischemia normal axis Course - Vital Signs Last Recorded V/S: Last Vital Signs Temp 98.1 F 03/25/21 23:35 Pulse 92 03/25/21 23:35 Resp 18 03/25/21 23:35 BP 109/78 03/25/21 23:35 Pulse Ox 96 03/25/21 23:35 - Orders/Labs/Meds Orders: Active Orders 24 hr Category Date Time Status Saline Lock Insert [OM.PC] Stat Oth 03/25/21 21:18 Ordered Labs: Laboratory Tests 03/25/21 03/25/21 03/25/21 Range/Units 21:43 21:43 21:50 WBC 3.18 L (4.0-11.0) K/uL RBC 4.94 (4.30-5.90) M/uL Hgb 14.5 (12.0-16.0) g/dL Hct 42.3 (36.0-46.0) % MCV 85.6 (80.0-98.0) fL MCH 29.4 (27.0-32.0) pg MCHC 34.3 (31.0-37.0) g/dL RDW Std Deviation 46.2 (28.0-62.0) fl RDW Coeff of Joseph 15 (11.0-15.0) % Plt Count 156 (150-400) K/uL MPV 10.80 (7.40-12.00) fL Neut % (Auto) 60.7 (48.0-80.0) % Lymph % (Auto) 31.8 (16.0-40.0) % [place] % (Auto) 7.2 (0.0-15.0) % Eos % (Auto) 0.3 (0.0-7.0) % Baso % (Auto) 0.0 (0.0-1.5) % Neut # (Auto) 1.9 (1.4-5.7) K/uL Lymph # (Auto) 1.0 (0.6-2.4) K/uL [place] # (Auto) 0.2 (0.0-0.8) K/uL Eos # (Auto) 0.0 (0.0-0.7) K/uL Baso # (Auto) 0.0 (0.0-0.1) K/uL Nucleated RBC % 0.0 /100WBC Nucleated RBCs # 0 K/uL Sodium 135 L (136-145) mmol/L Potassium 3.3 L (3.5-5.1) mmol/L Chloride 98 (98-107) mmol/L Carbon Dioxide 27.6 (21.0-32.0) mmol/L BUN 7 (7.0-18.0) mg/dL Creatinine 1.0 (0.6-1.0) mg/dL Est Cr Clr Drug Dosing 63.71 mL/min Estimated GFR (MDRD) 58.9 ml/min Glucose 107 H (74-106) mg/dL Calcium 7.9 L (8.5-10.1) mg/dL Total Bilirubin 0.4 (0.2-1.0) mg/dL AST 187 H (15-37) IU/L ALT 200 H (14-63) IU/L Alkaline Phosphatase 81 (46-116) U/L Troponin I < 0.050 (0.000-0.056) ng/mL Total Protein 7.9 (6.4-8.2) g/dL Albumin 3.2 L (3.4-5.0) g/dL Globulin 4.7 H (2.6-4.0) g/dL Albumin/Globulin Ratio 0.7 L (0.9-1.6) SARS-CoV-2 RNA (LOIS) POSITIVE H (NEGATIVE) Meds: Medications Discontinued Medications Generic Name Dose Route Start Last Admin Trade Name Maya PRN Reason Stop Dose Admin Sodium Chloride 10 ml 03/25/21 21:18 Sodium Chloride 0.9% 10 Ml Syringe FLUSH ASDIRECTED PRN Keep Vein Open Sodium Chloride 2.5 ml 03/25/21 21:18 Sodium Chloride 0.9% 2.5 Ml Syringe FLUSH ASDIRECTED PRN Keep Vein Open Departure - Departure Time of Disposition: 23:29 Disposition: Home, Self-Care 01 Condition: Good Clinical Impression: COVID-19 - Discharge Information *PRESCRIPTION DRUG MONITORING PROGRAM REVIEWED*: Not Applicable *COPY OF PRESCRIPTION DRUG MONITORING REPORT IN PATIENT GINA: Not Applicable Instructions: COVID-19: What to Do if You Are Sick - [facility] (07/24/2020) Referrals: Kaitlyn Castellon, [employer]ELOPER [Primary Care Provider] - Forms: ED Department Discharge Additional Instructions: I recommend that you take Mucinex to help with the mucus in your lungs and throat. You can add Maalox or Pepto-Bismol to help with the acid sensation in your stomach. Please be sure to quarantine at home. If you decide you are interested in any of the antibiotic therapies these must be given within 10 days of symptom onset. The following information is given to patients seen in the emergency department who are being discharged to home. This information is to outline your options for follow-up care. We provide all patients seen in our emergency department with a follow-up referral. The need for follow-up, as well as the timing and circumstances, are variable depending upon the specifics of your emergency department visit. If you don't have a primary care physician on staff, we will provide you with a referral. We always advise you to contact your personal physician following an emergency department visit to inform them of the circumstance of the visit and for follow-up with them and/or the need for any referrals to a consulting specialist. The emergency department will also refer you to a specialist when appropriate. This referral assures that you have the opportunity for follow-up care with a specialist. All of these measure are taken in an effort to provide you with optimal care, which includes your follow-up. Under all circumstances we always encourage you to contact your private physician who remains a resource for coordinating your care. When calling for follow-up care, please make the office aware that this follow-up is from your recent emergency room visit. If for any reason you are refused follow-up, please contact the [facility] Emergency Department at and asked to speak to the emergency department charge nurse. Sepsis Event Note (ED) - Focused Exam Vital Signs: Vital Signs Temp Pulse Resp BP Pulse Ox 03/25/21 23:35 98.1 F 92 18 109/78 96 03/25/21 21:00 99.5 F 90 19 121/81 98 - My Orders Last 24 Hours: My Active Orders 03/25/21 21:18 Saline Lock Insert [OM.PC] Stat - Assessment/Plan Last 24 Hours: My Active Orders 03/25/21 21:18 Saline Lock Insert [OM.PC] Stat Assessment:: 51-year-old female presented with signs and symptoms that are consistent with COVID-19 pneumonia. Work of breathing is normal oxygenation is normal given prior cardiac history EKG and troponin to be done as well as CBC CMP Covid swab and chest x-ray. Labs demonstrate Covid infection chest x-ray unremarkable minimal LFT elevation likely related to Covid. Patient's work of breathing remains normal with no hypoxia. I did offer referral for antibody infusion but patient declines that at this time. We discussed that any infusion will need to be done within 10 days of symptom onset and patient expressed understanding she will use Mucinex and Maalox her symptoms will follow up with her primary care provider.
--- NOTE | 2021-03-25 22:00 | CR ---
INDICATION: Cough, shortness of breath TECHNIQUE: Chest radiograph 1 view COMPARISON: 07/31/2018 FINDINGS: The sensitivity and specificity of the exam are moderately limited by the patient`s body habitus. Mediastinum: The mediastinum is normal in appearance. The heart silhouette is normal in size and morphology. Lung: Small lung volumes present minimal right basilar discoid atelectasis seen. No sign of pleural effusion seen. No pneumothorax is identified. Bone and Soft tissue: Unremarkable for age. IMPRESSION: 1. Small lung volumes present minimal right basilar discoid atelectasis seen. Dictated by Richard Burgess MD @ 03/25/2021 9:57:52 PM Dictated by: Richard Burgess MD @ 03/25/2021 21:57:57 (Electronically Signed)
[2021-03-25 22:15] LABS: BLOOD UREA NITROGEN,BUN 7 mg/dL (7.0-18.0); CARBON DIOXIDE,CO2 27.6 mmol/L (21.0-32.0); CHLORIDE,CL 98 mmol/L (98-107); GLUCOSE RANDOM 107 mg/dL (74-106); POTASSIUM,K 3.3 mmol/L (3.5-5.1); SODIUM,NA 135 mmol/L (136-145)
[2021-03-26 00:03] VITALS: BP 109/78; PULSE 92
== END 2021-03-25 23:35 | disposition home or self-care (01) ==
LOC: MW.ED 19:52
DX: U07.1 COVID-19 (principal); I10 Essential (primary) hypertension; E66.9 Obesity, unspecified; Z68.41 Body mass index [BMI] 40.0-44.9, adult; Z79.82 Long term (current) use of aspirin
CPT/HCPCS: 36415; 71045; 71045-26; 80053; 84484; 85025; 93005; 99285-25; U0002